=== PATIENT | male | born 1965 | race Caucasian/White ===

== ENCOUNTER 2023-04-03 14:20 | Emergency (ER) | payer BC ==
[~2023-04-03] VITALS: Ht 182.9 cm; Wt 70.5 kg
[2023-04-03 15:23] LABS: BASOPHILS # (AUTO) 0.1 X10'3 (0-0.2); BASOPHILS % (AUTO) 0.5 % (0-1); EOSINOPHILS # (AUTO) 0.5 X10'3 (0-0.9); EOSINOPHILS % (AUTO) 3.1 % (0-6); HEMATOCRIT 38.9 % (42.0-52.0); HEMOGLOBIN 13.1 g/dl (14.0-17.9); LYMPHOCYTES # (AUTO) 1.4 X10'3 (1.1-4.8); LYMPHOCYTES % (AUTO) 9.1 % (21-51); MEAN CORPUSCULAR HEMOGLOBIN 29.2 PG (27.0-31.0); MEAN CORPUSCULAR HGB CONC 33.6 g/dL (33.0-36.5); MEAN CORPUSCULAR VOLUME 86.8 FL (78-98); MEAN PLATELET VOLUME 7.5 FL (7.4-10.4); MONOCYTES # (AUTO) 1.4 X10'3 (0-0.9); MONOCYTES % (AUTO) 9.3 % (2-12); PLATELET COUNT 375 X10'3 (140-440); RED BLOOD COUNT 4.48 X10'6 (4.70-6.10); RED CELL DISTRIBUTION WIDTH 12.9 % (11.5-14.5); WHITE BLOOD COUNT 15.4 X10'3 (4.5-11.0)
[2023-04-03 15:37] LABS: D-DIMER 1.18 MG/L FEU (0-0.50)
[2023-04-03 15:40] LABS: ALANINE AMINOTRANSFERASE 25 U/L (12-78); ALBUMIN 2.3 G/DL (3.4-5.0); ALBUMIN/GLOBULIN RATIO 0.6 (1.1-1.5); ALKALINE PHOSPHATASE 63 IU/L (46-116); ANION GAP 6 (8-16); ASPARTATE AMINO TRANSFERASE 23 U/L (10-37); BILIRUBIN,TOTAL 0.3 MG/DL (0.1-1.0); BLOOD UREA NITROGEN 15 MG/DL (7-18); CALCIUM 8.6 MG/DL (8.5-10.1); CHLORIDE 98 MMOL/L (99-107); CREATININE 0.88 MG/DL (0.60-1.10); GLUCOSE 125 MG/DL (70-104); POTASSIUM 4.3 MMOL/L (3.5-5.1); SODIUM 134 MMOL/L (135-145); TOTAL CARBON DIOXIDE 30.1 MMOL/L (24-32); TOTAL PROTEIN 6.4 G/DL (6.4-8.2); eGFR 89 ML/MIN
[2023-04-03] MEDS ORDERED: iohexol 350MG/ML 100ml bottle IV ONE (15:50)
[2023-04-03] MEDS ORDERED: azithromycin 250mg tablet PO ONE (16:25)
[2023-04-03] MEDS ORDERED: AZIT250T2 PO ×2 (17:10)
[2023-04-03] MEDS ORDERED: CEPH-585 PO (17:20)
[2023-04-03] MEDS ORDERED: DOXY-1 PO (17:20)
[2023-04-03 17:40] VITALS: BP 139/78
== END 2023-04-03 17:48 | disposition home or self-care (01) ==
LOC: ER 14:21
DX: J18.9 Pneumonia, unspecified organism (principal); C34.91 Malignant neoplasm of unspecified part of right bronchus or lung
CPT/HCPCS: 36415; 71045; 71275; 80053; 83880; 84484; 85025; 85379; 93005; 99285; J3490; Q9967

== ENCOUNTER 2023-05-07 08:56 | Day surgery (SDC) | payer BC ==
[~2023-05-07] VITALS: Ht 182.9 cm; Wt 70.5 kg
[2023-05-07] MEDS ORDERED: NO HOME MEDS (09:24)
[2023-05-07 09:41] LABS: BASOPHILS % (AUTO) 0.4 % (0-1); EOSINOPHILS # (AUTO) 0.4 X10'3 (0-0.9); EOSINOPHILS % (AUTO) 5.2 % (0-6); HEMATOCRIT 48.7 % (42.0-52.0); LYMPHOCYTES % (AUTO) 26.2 % (21-51); MEAN CORPUSCULAR HEMOGLOBIN 30.3 PG (27.0-31.0); MEAN CORPUSCULAR HGB CONC 34.8 g/dL (33.0-36.5); MEAN PLATELET VOLUME 8.5 FL (7.4-10.4); MONOCYTES # (AUTO) 0.4 X10'3 (0-0.9); MONOCYTES % (AUTO) 4.6 % (2-12); NEUTROPHILS # (AUTO) 4.9 X10'3 (1.8-7.7); NEUTROPHILS % (AUTO) 63.6 % (42-75); PLATELET COUNT 210 X10'3 (140-440); RED CELL DISTRIBUTION WIDTH 13.8 % (11.5-14.5); WHITE BLOOD COUNT 7.6 X10'3 (4.5-11.0)
[2023-05-07] MEDS ORDERED: albumin 25% 100mL bottle x 1 IV PRN (09:50)
[2023-05-07] MEDS ORDERED: normal saline 1000ml 1,000 ML IV PRN (09:50)
[2023-05-07] MEDS ORDERED: LIDOcaine 1% 30ml preserv. free vial ONE (10:30)
[2023-05-07] MEDS ORDERED: fentaNYL/PF 50MCG/1 ML 2ML syringe ONE (10:32)
[2023-05-07] MEDS ORDERED: midazolam 1 mg/ML 2ml injection ONE (10:32)
[2023-05-07 10:53] VITALS: BP 131/80
[2023-05-07 11:06] VITALS: BP 124/87
[2023-05-07 11:15] VITALS: BP 119/79
[2023-05-07 11:30] VITALS: BP 125/78
[2023-05-07 11:40] VITALS: BP 130/81
[2023-05-07 14:32] VITALS: BP 136/93
== END 2023-05-07 11:45 | disposition home or self-care (01) ==
LOC: SSTAY O 08:56
PROVIDERS: ATTEND Radiology Vascular & Interventional Radiology
DX: R91.8 Other nonspecific abnormal finding of lung field (principal); Z53.8 Procedure and treatment not carried out for other reasons; F17.220 Nicotine dependence, chewing tobacco, uncomplicated; Z72.89 Other problems related to lifestyle; Z79.01 Long term (current) use of anticoagulants
CPT/HCPCS: 36415; 71250; 85025; 85610; J2250; J3010; J3490; J7030; 49405; 99152; 99153